=== PATIENT | female | born 1930 | race Caucasian/White ===

== ENCOUNTER 2018-07-03 15:56 | Inpatient (IN) | payer MEDICARE, BC ==
[~2018-07-03] VITALS: Ht 171.4 cm; Wt 74.8 kg
--- NOTE | ~2018-07-03 | OP ---
PATIENT NAME: BRIAN DOWD MEDICAL RECORD: [id number] :[birth year] LOCATION:D.M2 D.2109 ADMISSION DATE:07/04/18 SURGEON: LENARD GONCALVES MD DATE OF OPERATION: 07/05/2018 PREOPERATIVE DIAGNOSES: 1. Dysphagia. 2. Diabetes mellitus. 3. Hypertension. 4. Hyperlipidemia. 5. GERD. POSTOPERATIVE DIAGNOSES: 1. Dysphagia. 2. Diabetes mellitus. 3. Hypertension. 4. Hyperlipidemia. 5. GERD. 6. Hiatal hernia. PROCEDURE: PEG placement with EGD. SURGEON: Lenard Goncalves MD REPORT OF PROCEDURE: An Olympic endoscope was advanced through the mouth and the esophagus. Once we passed through the GE junction, the patient was noted to have a large hiatal hernia with approximately the top third of the stomach up in the chest. As we insufflated the abdomen, we passed through the esophageal hiatus into the body and antrum of the stomach. We passed the scope through into the first and second portion of the duodenum. These were noted to be normal in appearance with no sign of any inflammation. As we pulled back, the stomach was noted to have multiple hyperplastic polyps visible. An area was found on the body of the stomach to house our PEG tube. A total of 5 cc of 1% lidocaine was infused into the subcutaneous tissues. A skin incision was then made with a #11 blade. An Angiocath needle was advanced through the abdominal wall into the gastric lumen and a guidewire was passed through this. The wire was grasped and pulled through the mouth and esophagus. The PEG tube was affixed to the wire and these structures were all pulled through the mouth and esophagus and through the abdominal wall until it rested in good position at 4 cm at the skin. We reinserted the scope and made sure there was no sign of any injury to the structures and there was no sign of any internal bleeding, which there was none. The tube appeared to be resting in good position. At this point, the insufflation was removed. As the scope was pulled back, we saw no other signs of any masses or lesions visible. COMPLICATIONS: None. CONDITION: Stable. ANESTHESIA: TIVA. BLOOD LOSS: Minimal. TRANSINT:[id number] Voice Confirmation ID: [id number] DOCUMENT ID: [id number] OPERATIVE REPORT [id number] MEGHNA DOWDREY Fritz LENARD GONCALVES MD CC: [id number] DICTATION DATE: 07/05/18 1038 OPERATIONS RESEARCH DIRECTOR: 07/05/18 1056 ADM IN [facility] [address] [id number]
--- NOTE | ~2018-07-03 | MORECARE ---
CASE MANAGEMENT DISCHARGE SUMMARY PATIENT: BRIAN DOWD UNIT: [id number] ADM DATE: 07/04/18 AGE: 87 : [birth year] SEX: F ROOM/BED: D.2109 AUTHOR: ARAM,DOC PHYSICIAN: REFERRING PHYSICIAN: INEZ WHITT MD DATE OF SERVICE: 07/06/18 Discharge Plan Patient Name: BRIAN DOWD Facility: [facility]:[place] : 1930 Planned Disposition: [facility] Facility Anticipated Discharge Date: 07/05/18 Discharge Date: Expected LOS: 1 Initial Reviewer: [id number] Initial Review Date: 07/04/2018 Generated: 07/06/18 1:57 pm Comments DCP- Discharge Planning Updated by [id number]: Isaac Mathur on 07/06/18 11:[address] Patient Name: BRIAN DOWD Encounter No: [id number] : 1930 Primary Insurance: MEDICARE A & B Anticipated DC Date: 07-05-2018 Planned Disposition: [facility] Facility External Planned Provider: [facility], MEDICARE REHAB BED Discharge Planning Comments: CM SPOKE TO PATIENT AND HER FRIEND IN ROOM TOD DISCUSS DISCHARGE NEEDS AND PLANNING. BRIAN DOWD provided verbal consent to discuss current and ongoing needs with/in the presence of: FRIEND, GRICELDA LICONA. PT AND GRICELDA WANT PT TO RETURN TO [place] AT DISCHARGE FOR CONTINUED REHAB. PT HAS BEEN PAYING BED HOLD AND CANNOT DO THAT MUCH LONGER AND IS REQUESTING DISCHARGE TO REHAB TODAY. IMPORTANT MESSAGE FROM MEDICARE PROVIDED AND EXPLAINED. CM ASKED IF PT'S CARE COMPLAINTS HAD BEEN ADDRESSED, PT REPORTS THE UNIT NURSE CONCRETE RUBBER HAD BEEN IN YESTERDAY AND PT HAS BEEN RECEIVING "BETTER CARE NOW." CM FAXED UPDATE TO JOSE AT [place], . FOR RETURN TO REHAB AT [place], FAX DISCHARGE INFORMATION TO [place] AT [phone], NURSE REPORT TO BE CALLED TO [place] AT [phone]. [place] TO ARRANGE VAN TRANSPORTATION. Commercial Glazier: Isaac Mathur Appended by Isaac Mathur on 07/06/2018 12:55 SKEIN YARN DYER HELPER: CM RECEIVED DISCHARGE ORDER, NOTIFIED PT WHO IS IN AGREEMENT WITH DISCHARGE TO REHAB TODAY AT [place], CM OFFERED TO CALL FAMILY OR FRIENDS, PT DECLINED ASSISTANCE. CM NOTIFIED JOSE AT [place], , WHO SCHEDULED VAN HIGH LIFT OPERATOR FOR 1330 TODAY. BEDSIDE NURSE IS AWARE, CM NOTIFED PT. CM FAXED DISCHARGE INFORMATION TO [place] AT [phone]. NURSE REPORT TO BE CALLED TO [place] AT [phone]. [place] TO ARRANGE VAN TRANSPORTATION FOR 1330 TODAY. ISAAC MATHUR, CASE MANAGEMENT DCP- Discharge Planning Updated by [id number]: Isaac Mathur on 07/04/18 10:[address] Patient Name: BRIAN DOWD Admission Status: Elective Accout number: [id number] Admission Date: 07-03-2018 : 1930 Admission Diagnosis: Attending: PERI, Current LOS: 1 Anticipated DC Date: 07-05-2018 Planned Disposition: [facility] Facility Primary Insurance: MEDICARE A & B PLANNED EXTERNAL PROVIDER: [facility], MEDICARE REHAB BED Discharge Planning Comments: CM SPOKE TO CURBING STONECUTTER WHO REPORTS THAT PT'S FRIEND IN ROOM REPORTS HAVING POWER OF SWING DRIVER FOR PT AND THE FRIEND IS WANTING PT'S THROAT STRETCHED AND NOT HAVE A PEG TUBE. CM REVIEWED CHART AND CALLED [facility], . JOSE OF [place] ADVISED PT HAS NO POWER OF SWING DRIVER ON FILE WITH THEM, PT'S [facility] CONTACT IS ANABEL EV, FRIEND, [place] [phone] WITH NO OTHER CONTACTS LISTED. JOSE [place] ADVISED THAT PT WAS IN HER RIGHT MIND AND MAKING DECISIONS FOR HERSELF AT THE REHAB. PT HAS BED HOLDING AT [place] FOR REHAB TO RETURN. CURBING STONECUTTER NOTIFIED OF ABOVE INFORMATION. BEDSIDE NURSE NOTIFIED PER RN YONI HOUSE. FOR RETURN TO REHAB AT [place], FAX DISCHARGE INFORMATION TO [place] AT [phone], NURSE REPORT TO BE CALLED TO [place] AT [phone]. [place] TO ARRANGE VAN TRANSPORTATION. Commercial Glazier: Isaac Mathur DCPIA - Discharge Planning Initial Assessment Updated by [id number]: Isaac Mathur on 07/04/18 11:41 am * Is the patient Alert and Oriented? Yes * How many steps to enter\\exit or inside your home? NONE * PCP DR. WHITT * [facility] * Preadmission Environment [facility] Facility * Facility Name [facility] * ADLs Partial Dependent * Partial ADLs (Assistance needed) Ambulation Bathing Dressing Medication Management Transfers * Equipment Other * Other Equipment ALL MEDICAL EQUIPMENT PROVIDED BY FACILITY * List name and contact numbers for known caregivers / representatives who currently or will assist patient after discharge: VIVIANBella CARRENO, FRIEND, [place] [phone] * Verbal permission to speak to the caregivers and representatives has been obtained from the patient. N/A * Community resources currently utilized None * Please name any agencies selected above. NONE * Additional services required to return to the preadmission environment? No * Can the patient safely return to the preadmission environment? Yes * Has this patient been hospitalized within the prior 30 days at any hospital? No Coverage Notice Reviewer: [id number] Janis Mathur Notice Issued Date-Time: 07/06/2018 9:20 Notice Type: IM Discharge Notice Notice Delivered To: Patient Relationship to Patient: Derrick Boat Lever Operator Name: Delivery Method: HAND - Hand Delivered Nicole Days: Prior Verbal Notification: Recipient Understood Notice: Yes Recipient Signature: Yes Med Rec Note Co-signed by Attending: Coverage Notice Comment: Last DP export: 07/06/18 11:50 Patient Name: BRIAN DOWD Page 43875 at 1258 All edits/amendments must be made on the electronic document DICTATION DATE: 07/06/18 1257 ANODIZE MACHINE OPERATOR: SAM 07/06/18 1257 RPT#: [id number] DC DATE: STATUS: ADM IN [facility] [address] [place] [address] END OF REPORT
--- NOTE | ~2018-07-03 | MORECARE ---
CASE MANAGEMENT DISCHARGE SUMMARY PATIENT: BRIAN DOWD UNIT: [id number] ADM DATE: 07/04/18 AGE: 87 : [birth year] SEX: F ROOM/BED: D.2109 AUTHOR: ARAM,DOC PHYSICIAN: REFERRING PHYSICIAN: INEZ WHITT MD DATE OF SERVICE: 07/06/18 Discharge Plan Patient Name: BRIAN DOWD Facility: [facility]:[place] : 1930 Planned Disposition: Prison Facility Anticipated Discharge Date: 07/05/18 Discharge Date: Expected LOS: 1 Initial Reviewer: [id number] Initial Review Date: 07/04/2018 Generated: 07/06/18 1:50 pm Comments DCP- Discharge Planning Updated by [email or web address]: Isaac Eugene on 07/06/18 9:[address] Patient Name: BRIAN DOWD Encounter No: [id number] : 1930 Primary Insurance: MEDICARE A & B Anticipated DC Date: 07-05-2018 Planned Disposition: Prison Facility External Planned Provider: [facility], MEDICARE REHAB BED Discharge Planning Comments: CM SPOKE TO PATIENT AND HER FRIEND IN ROOM TOD DISCUSS DISCHARGE NEEDS AND PLANNING. BRIAN DOWD provided verbal consent to discuss current and ongoing needs with/in the presence of: FRIEND, GRICELDA LICONA. PT AND GRICELDA WANT PT TO RETURN TO [place] AT DISCHARGE FOR CONTINUED REHAB. PT HAS BEEN PAYING BED HOLD AND CANNOT DO THAT MUCH LONGER AND IS REQUESTING DISCHARGE TO REHAB TODAY. IMPORTANT MESSAGE FROM MEDICARE PROVIDED AND EXPLAINED. CM ASKED IF PT'S CARE COMPLAINTS HAD BEEN ADDRESSED, PT REPORTS THE UNIT NURSE TECHNICAL TRAINER HAD BEEN IN YESTERDAY AND PT HAS BEEN RECEIVING "BETTER CARE NOW." CM FAXED UPDATE TO JOSE AT [place], . FOR RETURN TO REHAB AT [place], FAX DISCHARGE INFORMATION TO [place] AT [phone], NURSE REPORT TO BE CALLED TO [place] AT [phone]. [place] TO ARRANGE VAN TRANSPORTATION. Ground Nuclear Weapons Assembly Officer: Isaac Eugene DCP- Discharge Planning Updated by [id number]: Isaac Eugene on 07/04/18 10:[address] Patient Name: BRIAN DOWD Admission Status: Elective Accout number: [id number] Admission Date: 07-03-2018 : 1930 Admission Diagnosis: Attending: PERI Current LOS: 1 Anticipated DC Date: 07-05-2018 Planned Disposition: Prison Facility Primary Insurance: MEDICARE A & B PLANNED EXTERNAL PROVIDER: [facility], MEDICARE REHAB BED Discharge Planning Comments: CM SPOKE TO CARTON STAPLER WHO REPORTS THAT PT'S FRIEND IN ROOM REPORTS HAVING POWER OF CORN BREEDER FOR PT AND THE FRIEND IS WANTING PT'S THROAT STRETCHED AND NOT HAVE A PEG TUBE. CM REVIEWED CHART AND CALLED [facility], . JOSE OF [place] ADVISED PT HAS NO POWER OF CORN BREEDER ON FILE WITH THEM, PT'S [facility] CONTACT IS KRISTINA LEVI, [place] [phone] WITH NO OTHER CONTACTS LISTED. JOSE SILVIA ADVISED THAT PT WAS IN HER RIGHT MIND AND MAKING DECISIONS FOR HERSELF AT THE REHAB. PT HAS BED HOLDING AT [place] FOR REHAB TO RETURN. CARTON STAPLER NOTIFIED OF ABOVE INFORMATION. BEDSIDE NURSE NOTIFIED PER RN YONI BAIRD. FOR RETURN TO REHAB AT [place], FAX DISCHARGE INFORMATION TO [place] AT [phone], NURSE REPORT TO BE CALLED TO [place] AT [phone]. [place] TO ARRANGE VAN TRANSPORTATION. Ground Nuclear Weapons Assembly Officer: Isaac Eugene DCPIA - Discharge Planning Initial Assessment Updated by [id number]: Isaac Eugene on 07/04/18 11:41 am * Is the patient Alert and Oriented? Yes * How many steps to enter\\exit or inside your home? NONE * PCP DR. WHITT * [facility] * Preadmission Environment Prison Facility * Facility Name [facility] * ADLs Partial Dependent * Partial ADLs (Assistance needed) Ambulation Bathing Dressing Medication Management Transfers * Equipment Other * Other Equipment ALL MEDICAL EQUIPMENT PROVIDED BY FACILITY * List name and contact numbers for known caregivers / representatives who currently or will assist patient after discharge: KRISTINA LEVI, [place] [phone] * Verbal permission to speak to the caregivers and representatives has been obtained from the patient. N/A * Community resources currently utilized None * Please name any agencies selected above. NONE * Additional services required to return to the preadmission environment? No * Can the patient safely return to the preadmission environment? Yes * Has this patient been hospitalized within the prior 30 days at any hospital? No Coverage Notice Reviewer: [id number] - Isaac Eugene Notice Issued Date-Time: 07/06/2018 9:20 Notice Type: IM Discharge Notice Notice Delivered To: Patient Relationship to Patient: Coating And Embossing Unit Operator Name: Delivery Method: HAND - Hand Delivered Nicole Days: Prior Verbal Notification: Recipient Understood Notice: Yes Recipient Signature: Yes Med Rec Note Co-signed by Attending: Coverage Notice Comment: Last DP export: 07/06/18 9:01 Patient Name: BRIAN DOWD Page 46895 at 1250 All edits/amendments must be made on the electronic document DICTATION DATE: 07/06/18 1250 DIRECTOR OF GRANTS: SAM 07/06/18 1250 RPT#: [id number] DC DATE: STATUS: ADM IN [facility] [address] [place] [address] END OF REPORT
--- NOTE | ~2018-07-03 | MORECARE ---
CASE MANAGEMENT DISCHARGE SUMMARY PATIENT: BRIAN DOWD UNIT: [id number] ADM DATE: 07/04/18 AGE: 87 : [birth year] SEX: F ROOM/BED: D.2109 AUTHOR: ARAM,DOC PHYSICIAN: REFERRING PHYSICIAN: INEZ WHITT MD DATE OF SERVICE: 07/06/18 Discharge Plan Patient Name: BRIAN DOWD Facility: [facility]:[place] : 1930 Planned Disposition: Nursing Home Facility Anticipated Discharge Date: 07/05/18 Discharge Date: Expected LOS: 2 Initial Reviewer: [id number] Initial Review Date: 07/04/2018 Generated: 07/06/18 11:01 am Comments DCP- Discharge Planning Updated by [id number]: Isaac Eugene on 07/06/18 9:[address] Patient Name: BRIAN DOWD Encounter No: [id number] : 1930 Primary Insurance: MEDICARE A & B Anticipated DC Date: 07-05-2018 Planned Disposition: Nursing Home Facility External Planned Provider: [facility], MEDICARE REHAB BED Discharge Planning Comments: CM SPOKE TO PATIENT AND HER FRIEND IN ROOM TOD DISCUSS DISCHARGE NEEDS AND PLANNING. BRIAN DOWD provided verbal consent to discuss current and ongoing needs with/in the presence of: FRIEND, GRICELDA LICONA. PT AND GRICELDA WANT PT TO RETURN TO [place] AT DISCHARGE FOR CONTINUED REHAB. PT HAS BEEN PAYING BED HOLD AND CANNOT DO THAT MUCH LONGER AND IS REQUESTING DISCHARGE TO REHAB TODAY. IMPORTANT MESSAGE FROM MEDICARE PROVIDED AND EXPLAINED. CM ASKED IF PT'S CARE COMPLAINTS HAD BEEN ADDRESSED, PT REPORTS THE UNIT NURSE TRANSMISSION TECHNICIAN HAD BEEN IN YESTERDAY AND PT HAS BEEN RECEIVING "BETTER CARE NOW." CM FAXED UPDATE TO JOSE AT [place], . FOR RETURN TO REHAB AT [place], FAX DISCHARGE INFORMATION TO [facility] AT [phone], NURSE REPORT TO BE CALLED TO [facility] AT [phone]. [place] TO ARRANGE VAN TRANSPORTATION. Performing Arts Technicians: Isaac Eugene DCP- Discharge Planning Updated by [id number]: Isaac Eugene on 07/04/18 10:[address] Patient Name: BRIAN DOWD Admission Status: Elective Accout number: [id number] Admission Date: 07-03-2018 : 1930 Admission Diagnosis: Attending: PERI Current LOS: 1 Anticipated DC Date: 07-05-2018 Planned Disposition: Nursing Home Facility Primary Insurance: MEDICARE A & B PLANNED EXTERNAL PROVIDER: [facility], MEDICARE REHAB BED Discharge Planning Comments: CM SPOKE TO THERMO CEMENTING FOLDER OPERATOR WHO REPORTS THAT PT'S FRIEND IN ROOM REPORTS HAVING POWER OF CROP FARMERS FOR PT AND THE FRIEND IS WANTING PT'S THROAT STRETCHED AND NOT HAVE A PEG TUBE. CM REVIEWED CHART AND CALLED [facility], . JOSE OF [place] ADVISED PT HAS NO POWER OF CROP FARMERS ON FILE WITH THEM, PT'S [facility] CONTACT IS KRISTINA LEVI, [place] [phone] WITH NO OTHER CONTACTS LISTED. JOSE SILVIA ADVISED THAT PT WAS IN HER RIGHT MIND AND MAKING DECISIONS FOR HERSELF AT THE REHAB. PT HAS BED HOLDING AT [place] FOR REHAB TO RETURN. THERMO CEMENTING FOLDER OPERATOR NOTIFIED OF ABOVE INFORMATION. BEDSIDE NURSE NOTIFIED PER RN YONI BAIRD. FOR RETURN TO REHAB AT [place], FAX DISCHARGE INFORMATION TO [facility] AT [phone], NURSE REPORT TO BE CALLED TO [facility] AT [phone]. [place] TO ARRANGE VAN TRANSPORTATION. Performing Arts Technicians: Isaac Eugene DCPIA - Discharge Planning Initial Assessment Updated by [email or web address]: Isaac Eugene on 07/04/18 11:41 am * Is the patient Alert and Oriented? Yes * How many steps to enter\\exit or inside your home? NONE * PCP DR. WHITT * [facility] * Preadmission Environment Nursing Home Facility * Facility Name [facility] * ADLs Partial Dependent * Partial ADLs (Assistance needed) Ambulation Bathing Dressing Medication Management Transfers * Equipment Other * Other Equipment ALL MEDICAL EQUIPMENT PROVIDED BY FACILITY * List name and contact numbers for known caregivers / representatives who currently or will assist patient after discharge: KRISTINA LEVI, [place] [phone] * Verbal permission to speak to the caregivers and representatives has been obtained from the patient. N/A * Community resources currently utilized None * Please name any agencies selected above. NONE * Additional services required to return to the preadmission environment? No * Can the patient safely return to the preadmission environment? Yes * Has this patient been hospitalized within the prior 30 days at any hospital? No Coverage Notice Reviewer: [id number] - Isaac Eugene Notice Issued Date-Time: 07/06/2018 9:20 Notice Type: IM Discharge Notice Notice Delivered To: Patient Relationship to Patient: Meter Reader Inspector Name: Delivery Method: HAND - Hand Delivered Nicole Days: Prior Verbal Notification: Recipient Understood Notice: Yes Recipient Signature: Yes Med Rec Note Co-signed by Attending: Coverage Notice Comment: Last DP export: 07/04/18 10:47 Patient Name: BRIAN DWOD Page 96996 at 1001 All edits/amendments must be made on the electronic document DICTATION DATE: 07/06/18 1000 REEL SLITTER: SAM 07/06/18 1000 RPT#: [id number] DC DATE: STATUS: ADM IN [facility] [address] [place] [address] END OF REPORT
--- NOTE | ~2018-07-03 | MORECARE ---
CASE MANAGEMENT DISCHARGE SUMMARY PATIENT: BRIAN DOWD UNIT: [id number] ADM DATE: 07/03/18 AGE: 87 : [birth year] SEX: F ROOM/BED: D.2102 AUTHOR: ARAM,DOC PHYSICIAN: REFERRING PHYSICIAN: INEZ WHITT MD DATE OF SERVICE: 07/04/18 Discharge Plan Patient Name: BRIAN DOWD Facility: [facility]:[place] : 1930 Planned Disposition: Detention Facility Anticipated Discharge Date: 07/05/18 Discharge Date: Expected LOS: 2 Initial Reviewer: [id number] Initial Review Date: 07/04/2018 Generated: 07/04/18 12:47 pm Comments DCP- Discharge Planning Updated by [email or web address]: Isaac Eugene on 07/04/18 10:[address] Patient Name: BRIAN DOWD Admission Status: Elective Accout number: [id number] Admission Date: 07-03-2018 : 1930 Admission Diagnosis: Attending: PERI, Current LOS: 1 Anticipated DC Date: 07-05-2018 Planned Disposition: Detention Facility Primary Insurance: MEDICARE A & B PLANNED EXTERNAL PROVIDER: [facility], MEDICARE REHAB BED Discharge Planning Comments: CM SPOKE TO PROGRAM MANAGER TRANSPORTATION WHO REPORTS THAT PT'S FRIEND IN ROOM REPORTS HAVING POWER OF NNPS FOR PT AND THE FRIEND IS WANTING PT'S THROAT STRETCHED AND NOT HAVE A PEG TUBE. CM REVIEWED CHART AND CALLED [facility], . JOSE OF [place] ADVISED PT HAS NO POWER OF NNPS ON FILE WITH THEM, PT'S [facility] CONTACT IS ANABEL ROBB, FRIEND, [place] [phone] WITH NO OTHER CONTACTS LISTED. JOSE VEGA ADVISED THAT PT WAS IN HER RIGHT MIND AND MAKING DECISIONS FOR HERSELF AT THE REHAB. PT HAS BED HOLDING AT [place] FOR REHAB TO RETURN. PROGRAM MANAGER TRANSPORTATION NOTIFIED OF ABOVE INFORMATION. BEDSIDE NURSE NOTIFIED PER JUAN DAVID BAIRD. FOR RETURN TO REHAB AT [place], FAX DISCHARGE INFORMATION TO [place] AT [phone], NURSE REPORT TO BE CALLED TO [place] AT [phone]. [place] TO ARRANGE VAN TRANSPORTATION. Sheet Fed Printer: Isaac Eugene DCPIA - Discharge Planning Initial Assessment Updated by [email or web address]: Isaac Eugene on 07/04/18 11:41 am * Is the patient Alert and Oriented? Yes * How many steps to enter\exit or inside your home? NONE * PCP DR. WHITT * [facility] * Preadmission Environment Detention Facility * Facility Name [facility] * ADLs Partial Dependent * Partial ADLs (Assistance needed) Ambulation Bathing Dressing Medication Management Transfers * Equipment Other * Other Equipment ALL MEDICAL EQUIPMENT PROVIDED BY FACILITY * List name and contact numbers for known caregivers / representatives who currently or will assist patient after discharge: ANABEL CARRENO, FRIEND, [place] [phone] * Verbal permission to speak to the caregivers and representatives has been obtained from the patient. N/A * Community resources currently utilized None * Please name any agencies selected above. NONE * Additional services required to return to the preadmission environment? No * Can the patient safely return to the preadmission environment? Yes * Has this patient been hospitalized within the prior 30 days at any hospital? No External Providers External Provider: [facility] Next Contact Date: 07/04/2018 Service Request Date: Service Type: Resolution: Reviewer: Comments: Patient Name: BRIAN DOWD Page 97510 at 1148 All edits/amendments must be made on the electronic document DICTATION DATE: 07/04/18 1147 CABLE MACHINE OPERATOR: SAM 07/04/18 1147 RPT#: [id number] [place] DATE: STATUS: ADM IN [facility] [address] [place] [address] END OF REPORT
[~2018-07-03 15:56] MED LIST: ADVAIR HFA [SP]12 GM INH; ANASTROZOLE1 MG PO; BENADRYL25 MG PO; CALCIUM 600+D T1 TA1 PO; DEXILANT60 MG PO; LEVAQUIN500 MG PO; LIPITOR10 MG PO; PERCOCET 10/3251 TA1 PO; PROVENTIL/2.5 MG/3 M; PROVENTIL/2.5 MG/3 M NEB; REGLAN10 MG PO; SYMBICORT 16010.2 GM INH; TIROSINT75 MCG PO; TUDORZA PRESS400 MCG IH; VITAMIN D2000 UNIT PO; VITAMIN E1000 UNIT PO
[2018-07-03] MEDS ORDERED: ASPIRIN81 MG PO (17:51)
[2018-07-03] MEDS ORDERED: NEXIUM20 MG PO (17:53)
[2018-07-03 18:14] LABS: BASOPHILS 0.1 % (0-2); EOSINOPHILS 1.2 % (0-7); HEMATOCRIT 33.3 % (36.0-48.0); HEMOGLOBIN 10.8 g/dL (12-16); IMMATURE GRANULOCYTES 0.5 % (0-5); LYMPHOCYTES 12.9 % (15-50); MCH 30.5 pg (26.0-34.0); MCHC 32.4 g/dL (31.0-37.0); MCV 94.1 fL (80.0-100.0); MEAN PLATELET VOLUME 10.9 fL (7.4-10.4); MONOCYTES 7.6 % (2-11); NEUTROPHILS 77.7 % (40-80); RBC 3.54 10x6/uL (4.00-5.40); RDW 14.1 % (11.5-14.5); WBC 7.5 10x3/uL (4.8-10.8)
[2018-07-03 18:25] LABS: PLATELET COUNT 120 10x3/uL (130-400)
[2018-07-03 18:30] LABS: ALBUMIN 2.5 g/dL (3.4-5.0); ALKALINE PHOSPHATASE 48 U/L (46-116); ALT (SGPT) 21 U/L (10-68); CALC OSMOLALITY 277 mosm/kg (275-300); CALCIUM 8.5 mg/dL (8.5-10.1); CARBON DIOXIDE 31.1 mmol/L (21.0-32.0); CHLORIDE - SERUM 104 mmol/L (98-107); CREATININE - SERUM 0.5 mg/dL (0.6-1.3); PROTEIN - SERUM 5.5 g/dL (6.4-8.2); SODIUM 139 mmol/L (136-145); UREA NITROGEN 12 mg/dL (7-18); eGFR NON AFRICAN AMERICAN > 90 mL/min (90-120)
[2018-07-03 18:31] LABS: GLUCOSE 103 mg/dL (74-106)
[2018-07-03 19:00] VITALS: BP 148/57
[2018-07-03 23:26] VITALS: BP 148/57; BMI 25.5
[2018-07-04 01:14] VITALS: BP 141/74
[2018-07-04 05:25] VITALS: BP 144/70
[2018-07-04 09:27] VITALS: BP 147/68
[2018-07-04 11:33] VITALS: BP 137/62
[2018-07-04] MEDS ORDERED: PREDNISONE20 MG PO (15:20)
[2018-07-04] MEDS ORDERED: TAMOXIFEN CITRA20 MG PO (15:22)
[2018-07-04] MEDS ORDERED: VITAMIN D31000 UNIT PO (15:24)
[2018-07-04] MEDS ORDERED: FEXOFENADINE H180 MG PO (15:28)
[2018-07-04] MEDS ORDERED: COLACE100 MG PO (15:29)
[2018-07-04] MEDS ORDERED: REGLAN5 MG PO (15:31)
[2018-07-04] MEDS ORDERED: METOPROLOL TART25 MG PO (15:32)
[2018-07-04] MEDS ORDERED: KENALOG 0.1 % 115 GM TOPICAL (15:34)
[2018-07-04] MEDS ORDERED: IPRAT-ALBUT 0.5-3 ML UPD (15:37)
[2018-07-04] MEDS ORDERED: MIRALAX17 GM PO (15:38)
[2018-07-04 19:45] VITALS: BP 163/56
[2018-07-04 23:35] VITALS: BP 127/60
[2018-07-05 03:34] VITALS: BP 123/52
[2018-07-05 08:22] VITALS: BP 154/52
[2018-07-05 09:24] VITALS: Ht 171.4 cm; Wt 74.8 kg
[2018-07-05 14:26] LABS: BASOPHILS 0.1 % (0-2); EOSINOPHILS 0.1 % (0-7); HEMATOCRIT 33.1 % (36.0-48.0); HEMOGLOBIN 10.9 g/dL (12-16); IMMATURE GRANULOCYTES 0.4 % (0-5); LYMPHOCYTES 2.5 % (15-50); MCH 30.4 pg (26.0-34.0); MCHC 32.9 g/dL (31.0-37.0); MCV 92.2 fL (80.0-100.0); MEAN PLATELET VOLUME 10.8 fL (7.4-10.4); MONOCYTES 2.5 % (2-11); NEUTROPHILS 94.4 % (40-80); PLATELET COUNT 115 10x3/uL (130-400); RBC 3.59 10x6/uL (4.00-5.40); RDW 13.9 % (11.5-14.5)
[2018-07-05 14:30] LABS: WBC 11.2 10x3/uL (4.8-10.8)
[2018-07-05 14:41] LABS: CALC OSMOLALITY 276 mosm/kg (275-300); CALCIUM 8.4 mg/dL (8.5-10.1); CARBON DIOXIDE 22.9 mmol/L (21.0-32.0); CHLORIDE - SERUM 101 mmol/L (98-107); CREATININE - SERUM 0.6 mg/dL (0.6-1.3); GLUCOSE 105 mg/dL (74-106); POTASSIUM - SERUM 4.1 mmol/L (3.5-5.1); SODIUM 139 mmol/L (136-145); UREA NITROGEN 11 mg/dL (7-18); eGFR NON AFRICAN AMERICAN > 90 mL/min (90-120)
[2018-07-05 15:30] VITALS: BP 129/54
[2018-07-05 19:45] VITALS: BP 111/46
[2018-07-05 23:45] VITALS: BP 165/67
[2018-07-06 03:55] VITALS: BP 127/42
[2018-07-06 08:35] VITALS: BP 142/50
[2018-07-06 11:34] VITALS: BP 107/50
== END 2018-07-06 14:26 | DRG 392 ==
LOC: D.M2 15:56 → OBSVTIME 15:56 → D.M2 15:56
PROVIDERS: Family Medicine; Surgery
PROC: 0DH63UZ Insertion of Feeding Device into Stomach, Percutaneous Approach (ICD-10-PCS; principal; 2018-07-05 10:15)
DX: R13.10 Dysphagia, unspecified (principal); E11.65 Type 2 diabetes mellitus with hyperglycemia; I10 Essential (primary) hypertension; J44.9 Chronic obstructive pulmonary disease, unspecified; E78.5 Hyperlipidemia, unspecified; K21.9 Gastro-esophageal reflux disease without esophagitis; Z85.3 Personal history of malignant neoplasm of breast; E03.9 Hypothyroidism, unspecified